=== PATIENT | male | born 1975 | race African-American/Black ===

== ENCOUNTER 2022-03-06 16:44 | Inpatient (IN) ==
[2022-03-06] MEDS ORDERED: DILTIAZEM 100 MG VIAL.ADD IV ONE (20:22)
[2022-03-06] MEDS ORDERED: DILTIAZEM 25 MG/5 ML VIAL IV ONE (20:22)
[2022-03-06] MEDS ORDERED: ENOXAPARIN 60 MG/0.6 ML SYRINGE IV ONE (20:24)
[2022-03-06] MEDS ORDERED: DILTIAZEM 25 MG/5 ML VIAL IV STA (20:24)
[2022-03-06] MEDS: DILTIAZEM INJ 100 MG in SODIUM CHLORIDE 0.9% 100 ML IV SCH (20:32)
[2022-03-06 20:37] LABS: Basophils # 0.1 10*3/uL (0.0-0.2); Basophils % 0.9 % (0.0-0.8); Eosinophils # 0.2 10*3/uL (0.0-0.87); Hematocrit 45.7 VOL% (42.0-52.0); Immature Granulocytes % 0.4 %; Immature Granulocytes Absolute 0.03 #; Lymphocytes # 2.3 10*3/uL (1.4-4.0); Lymphocytes % 28.8 % (21.2-54.2); Mean Corpuscular HGB Conc 32.8 GM/DL (32-36); Mean Corpuscular Volume 86.6 FL (87-102); Mean Platelet Volume 11.3 FL (9.6-12.0); Monocytes # 0.8 10*3/uL (0.11-0.8); Monocytes % 9.7 % (1.7-12.7); Neutrophils % 58.2 % (38.7-73.9); Platelet Count 286 T/CUMM (130-400); Red Blood Count 5.28 MC/CUMM (3.8-5.5); White Blood Count 7.8 T/CUMM (4-12)
[2022-03-06] MEDS ORDERED: ENOXAPARIN 80 MG/0.8 ML SYRINGE SUBCUT STA (20:39)
[2022-03-06] MEDS ORDERED: ENOXAPARIN 100 MG/ML SYRINGE SUBCUT ONE ×2 (21:00)
[2022-03-06 21:12] LABS: Albumin 3.2 G/DL (3.4-5.0); Bilirubin,Total 0.6 MG/DL (0.20-1.00); Calcium 8.7 MG/DL (8.5-10.1); High Sensitive Troponin I* 37.4 ng/L (0-78); Osmolality,Calculated 285.3 MOS/KG (273-304); Potassium 3.3 MMOL/L (3.5-5.1)
[2022-03-06] MEDS ORDERED: POTASSIUM CHLORIDE 20 MEQ TABLET PO STA (21:21)
[2022-03-06] MEDS ORDERED: MORPHINE 2 MG/1 ML SYRINGE IV PRN (22:21)
[2022-03-06] MEDS ORDERED: diphenhydrAMINE CAP 25 MG CAPSULE PO PRN (22:21)
[2022-03-06] MEDS ORDERED: hydrALAZINE 20 MG/1 ML VIAL IV PRN (22:21)
[2022-03-06] MEDS ORDERED: NICOTINE 21 MG/24 HR PATCH TRANSDERM PRN (22:21)
[2022-03-06] MEDS ORDERED: BISACODYL 5 MG TABLET PO PRN (22:21)
[2022-03-06] MEDS ORDERED: ACETAMINOPHEN 325 MG TABLET PO PRN (22:21)
[2022-03-06] MEDS ORDERED: ONDANSETRON 4 MG/2 ML VIAL IV PRN (22:21)
[2022-03-06] MEDS ORDERED: GLUCAGON 1 MG VIAL IM PRN (22:21)
[2022-03-06] MEDS ORDERED: MAGNESIUM SULF RIDER 1 GM/100 ML PREMIX IV ONE (22:23)
[2022-03-06] MEDS ORDERED: FUROSEMIDE 40 MG/4 ML VIAL IV STA (22:24)
[2022-03-06] MEDS ORDERED: DEXTROSE 10% 250 ML BAG IV PRN (22:26)
[2022-03-07 00:24] LABS: Barbiturates Screen,Urine Negative (Negative); Benzodiazepines Screen,Urine Negative (Negative); Cannabinoid Screen,Urine Negative (Negative); Opiate Screen,Urine Negative (Negative); Phencyclidine Screen,Urine Negative (Negative)
[2022-03-07] MEDS: DILTIAZEM INJ 100 MG in SODIUM CHLORIDE 0.9% 100 ML IV SCH ×2 (03:24→21:36)
[2022-03-07 04:51] LABS: Basophils # 0.1 10*3/uL (0.0-0.2); Basophils % 0.8 % (0.0-0.8); Eosinophils # 0.2 10*3/uL (0.0-0.87); Eosinophils % 2.8 % (0.00-10.9); Hematocrit 44.3 VOL% (42.0-52.0); Hemoglobin 14.1 GM/DL (14.0-18.0); Immature Granulocytes % 0.3 %; Immature Granulocytes Absolute 0.02 #; Lymphocytes # 2.1 10*3/uL (1.4-4.0); Mean Corpuscular HGB Conc 31.8 GM/DL (32-36); Mean Corpuscular Volume 88.6 FL (87-102); Mean Platelet Volume 11.6 FL (9.6-12.0); Monocytes # 0.8 10*3/uL (0.11-0.8); Monocytes % 10.1 % (1.7-12.7); Platelet Count 269 T/CUMM (130-400); White Blood Count 7.9 T/CUMM (4-12)
[2022-03-07 05:09] LABS: Calcium 8.6 MG/DL (8.5-10.1); Osmolality,Calculated 282.3 MOS/KG (273-304); Potassium 3.4 MMOL/L (3.5-5.1)
[2022-03-07] MEDS: POTASSIUM CHLORIDE 20 MEQ TABLET PO SCH (08:35)
[2022-03-07] MEDS: PANTOPRAZOLE 40 MG TABLET PO SCH (08:35)
[2022-03-07] MEDS: INSULIN LISPRO 100 UNIT/ML SUBCUT SCH ×4 (08:50→21:31)
[2022-03-07] MEDS: METOPROLOL TARTRATE 25 MG TABLET PO SCH ×2 (09:25→21:36)
[2022-03-07] MEDS: RIVAROXABAN 20 MG TABLET PO SCH (09:26)
[2022-03-07] MEDS ORDERED: POTASSIUM CHLORIDE 20 MEQ TABLET PO PRN (11:39)
[2022-03-07] MEDS: guaiFENesin/DM ER 600-30 MG TABLET PO PRN (16:19)
[2022-03-07] MEDS: ZALEPLON 5 MG CAPSULE PO PRN (21:36)
[2022-03-08 05:02] LABS: Basophils % 0.6 % (0.0-0.8); Eosinophils # 0.2 10*3/uL (0.0-0.87); Hematocrit 43.2 VOL% (42.0-52.0); Hemoglobin 13.9 GM/DL (14.0-18.0); Immature Granulocytes % 0.3 %; Immature Granulocytes Absolute 0.02 #; Lymphocytes # 1.7 10*3/uL (1.4-4.0); Lymphocytes % 24.6 % (21.2-54.2); Mean Corpuscular HGB Conc 32.2 GM/DL (32-36); Mean Corpuscular Volume 87.4 FL (87-102); Mean Platelet Volume 11.5 FL (9.6-12.0); Monocytes # 0.7 10*3/uL (0.11-0.8); Monocytes % 10.3 % (1.7-12.7); Neutrophils % 61.2 % (38.7-73.9); Platelet Count 249 T/CUMM (130-400); Red Blood Count 4.94 MC/CUMM (3.8-5.5); Red Cell Distribution Width 13.9 % (9.3-17.3); White Blood Count 6.7 T/CUMM (4-12)
[2022-03-08 05:23] LABS: Calcium 8.6 MG/DL (8.5-10.1); Osmolality,Calculated 282.3 MOS/KG (273-304); Potassium 3.6 MMOL/L (3.5-5.1)
[2022-03-08] MEDS: RIVAROXABAN 20 MG TABLET PO SCH (08:12)
[2022-03-08] MEDS: PANTOPRAZOLE 40 MG TABLET PO SCH (08:12)
[2022-03-08] MEDS: POTASSIUM CHLORIDE 20 MEQ TABLET PO SCH (08:12)
[2022-03-08] MEDS: guaiFENesin/DM ER 600-30 MG TABLET PO PRN ×2 (08:12→20:57)
[2022-03-08] MEDS: METOPROLOL TARTRATE 25 MG TABLET PO SCH ×2 (08:12→20:59)
[2022-03-08] MEDS: INSULIN LISPRO 100 UNIT/ML SUBCUT SCH ×4 (08:29→21:01)
[2022-03-08] MEDS ORDERED: SODIUM CHLORIDE 0.9% 1,000 ML IV SCH (09:00)
[2022-03-08] MEDS ORDERED: methylPREDNISolone 4 MG TABLET PO SCH (10:30)
[2022-03-08] MEDS: BUDESONIDE/FORMOTEROL 160-4.5 INHALER 6 GM INH SCH ×2 (12:32→21:02)
[2022-03-08] MEDS ORDERED: HEPARIN/NACL 0.9% 2 UNITS/ML 3,000 UNIT/1,500 ML BAG IV ONE (14:03)
[2022-03-08] MEDS ORDERED: fentaNYL 100 MCG/2 ML VIAL ONE (15:17)
[2022-03-08] MEDS ORDERED: MIDAZOLAM 2 MG/2 ML VIAL ONE ×2 (15:17→15:53)
[2022-03-08] MEDS ORDERED: DILTIAZEM 100 MG VIAL.ADD IV ONE (16:27)
[2022-03-08] MEDS: methylPREDNISolone 4 MG TABLET PO SCH ×3 (17:50→20:58)
[2022-03-08] MEDS: SACUBITRIL/VALSARTAN 49-51 MG TABLET PO SCH (20:57)
[2022-03-08] MEDS: ZALEPLON 5 MG CAPSULE PO PRN (20:58)
[2022-03-09] MEDS: DILTIAZEM INJ 100 MG in SODIUM CHLORIDE 0.9% 100 ML IV SCH ×2 (01:34→20:27)
[2022-03-09 06:00] LABS: Basophils % 0.2 % (0.0-0.8); Eosinophils % 0.2 % (0.00-10.9); Hematocrit 44.2 VOL% (42.0-52.0); Hemoglobin 14.3 GM/DL (14.0-18.0); Immature Granulocytes % 0.8 %; Immature Granulocytes Absolute 0.05 #; Lymphocytes # 0.8 10*3/uL (1.4-4.0); Lymphocytes % 12.2 % (21.2-54.2); Mean Corpuscular HGB Conc 32.4 GM/DL (32-36); Mean Corpuscular Volume 87.5 FL (87-102); Mean Platelet Volume 11.3 FL (9.6-12.0); Monocytes # 0.3 10*3/uL (0.11-0.8); Monocytes % 4.5 % (1.7-12.7); Neutrophils % 82.1 % (38.7-73.9); Platelet Count 284 T/CUMM (130-400); Red Blood Count 5.05 MC/CUMM (3.8-5.5); Red Cell Distribution Width 13.7 % (9.3-17.3); White Blood Count 6.5 T/CUMM (4-12)
[2022-03-09 06:17] LABS: Calcium 8.8 MG/DL (8.5-10.1); Osmolality,Calculated 284.3 MOS/KG (273-304); Potassium 4.1 MMOL/L (3.5-5.1)
[2022-03-09] MEDS: INSULIN LISPRO 100 UNIT/ML SUBCUT SCH ×4 (08:05→21:39)
[2022-03-09] MEDS: METOPROLOL TARTRATE 50 MG TABLET PO SCH ×2 (09:15→21:35)
[2022-03-09] MEDS: SACUBITRIL/VALSARTAN 49-51 MG TABLET PO SCH ×2 (09:15→21:35)
[2022-03-09] MEDS: RIVAROXABAN 20 MG TABLET PO SCH (09:15)
[2022-03-09] MEDS: PANTOPRAZOLE 40 MG TABLET PO SCH (09:16)
[2022-03-09] MEDS: ASPIRIN EC 81 MG TABLET PO SCH (09:16)
[2022-03-09] MEDS: POTASSIUM CHLORIDE 20 MEQ TABLET PO SCH (09:16)
[2022-03-09] MEDS: methylPREDNISolone 4 MG TABLET PO SCH ×4 (09:17→21:35)
[2022-03-09] MEDS: BUDESONIDE/FORMOTEROL 160-4.5 INHALER 6 GM INH SCH ×2 (09:17→21:39)
[2022-03-09] MEDS: ASCORBIC ACID 500 MG TABLET PO SCH (21:35)
[2022-03-10 05:56] LABS: Basophils % 0.2 % (0.0-0.8); Eosinophils % 0.1 % (0.00-10.9); Hematocrit 47.6 VOL% (42.0-52.0); Immature Granulocytes % 0.5 %; Immature Granulocytes Absolute 0.04 #; Lymphocytes % 11.7 % (21.2-54.2); Mean Corpuscular HGB Conc 33.6 GM/DL (32-36); Mean Corpuscular Volume 88.5 FL (87-102); Mean Platelet Volume 11.5 FL (9.6-12.0); Monocytes # 0.5 10*3/uL (0.11-0.8); Monocytes % 5.2 % (1.7-12.7); Neutrophils % 82.3 % (38.7-73.9); Platelet Count 295 T/CUMM (130-400); Red Blood Count 5.38 MC/CUMM (3.8-5.5); Red Cell Distribution Width 13.8 % (9.3-17.3); White Blood Count 8.6 T/CUMM (4-12)
[2022-03-10 06:13] LABS: Calcium 8.7 MG/DL (8.5-10.1); Osmolality,Calculated 280.5 MOS/KG (273-304); Potassium 4.2 MMOL/L (3.5-5.1)
[2022-03-10] MEDS: INSULIN LISPRO 100 UNIT/ML SUBCUT SCH ×4 (08:29→20:55)
[2022-03-10] MEDS: POTASSIUM CHLORIDE 20 MEQ TABLET PO SCH (08:36)
[2022-03-10] MEDS: methylPREDNISolone 4 MG TABLET PO SCH ×4 (08:37→20:51)
[2022-03-10] MEDS: ASCORBIC ACID 500 MG TABLET PO SCH ×2 (08:37→20:51)
[2022-03-10] MEDS: RIVAROXABAN 20 MG TABLET PO SCH (08:37)
[2022-03-10] MEDS: ASPIRIN EC 81 MG TABLET PO SCH (08:37)
[2022-03-10] MEDS: PANTOPRAZOLE 40 MG TABLET PO SCH (08:37)
[2022-03-10] MEDS: SACUBITRIL/VALSARTAN 49-51 MG TABLET PO SCH ×2 (08:55→20:51)
[2022-03-10] MEDS ORDERED: METOPROLOL TARTRATE 25 MG TABLET PO SCH (09:00)
[2022-03-10] MEDS: BUDESONIDE/FORMOTEROL 160-4.5 INHALER 6 GM INH SCH ×2 (09:13→21:01)
[2022-03-10] MEDS: METOPROLOL TARTRATE 100 MG TABLET PO SCH ×2 (10:11→20:51)
[2022-03-10] MEDS ORDERED: DIGOXIN 0.25 MG TABLET PO ONE (12:24)
[2022-03-10] MEDS: guaiFENesin/DM ER 600-30 MG TABLET PO PRN (20:58)
[2022-03-11 06:06] LABS: Basophils % 0.2 % (0.0-0.8); Eosinophils % 0.2 % (0.00-10.9); Hematocrit 48.5 VOL% (42.0-52.0); Hemoglobin 15.3 GM/DL (14.0-18.0); Immature Granulocytes % 0.3 %; Immature Granulocytes Absolute 0.03 #; Lymphocytes # 1.7 10*3/uL (1.4-4.0); Mean Corpuscular HGB Conc 31.5 GM/DL (32-36); Mean Corpuscular Volume 87.7 FL (87-102); Mean Platelet Volume 11.7 FL (9.6-12.0); Monocytes # 0.7 10*3/uL (0.11-0.8); Monocytes % 7.3 % (1.7-12.7); Platelet Count 297 T/CUMM (130-400); Red Blood Count 5.53 MC/CUMM (3.8-5.5); Red Cell Distribution Width 13.9 % (9.3-17.3); White Blood Count 9.5 T/CUMM (4-12)
[2022-03-11 06:47] LABS: Calcium 8.9 MG/DL (8.5-10.1); Osmolality,Calculated 281.5 MOS/KG (273-304); Potassium 3.9 MMOL/L (3.5-5.1)
[2022-03-11] MEDS: ASCORBIC ACID 500 MG TABLET PO SCH ×2 (08:35→21:47)
[2022-03-11] MEDS: ASPIRIN EC 81 MG TABLET PO SCH (08:35)
[2022-03-11] MEDS: SACUBITRIL/VALSARTAN 49-51 MG TABLET PO SCH ×2 (08:36→21:47)
[2022-03-11] MEDS: RIVAROXABAN 20 MG TABLET PO SCH (08:36)
[2022-03-11] MEDS: PANTOPRAZOLE 40 MG TABLET PO SCH (08:36)
[2022-03-11] MEDS: POTASSIUM CHLORIDE 20 MEQ TABLET PO SCH (08:36)
[2022-03-11] MEDS: METOPROLOL TARTRATE 100 MG TABLET PO SCH (08:36)
[2022-03-11] MEDS: methylPREDNISolone 4 MG TABLET PO SCH ×3 (08:37→21:50)
[2022-03-11] MEDS: BUDESONIDE/FORMOTEROL 160-4.5 INHALER 6 GM INH SCH ×2 (08:39→21:49)
[2022-03-11] MEDS: INSULIN LISPRO 100 UNIT/ML SUBCUT SCH ×4 (08:58→21:49)
[2022-03-11] MEDS: DILTIAZEM INJ 100 MG in SODIUM CHLORIDE 0.9% 100 ML IV SCH (10:47)
[2022-03-11] MEDS ORDERED: DAPAGLIFLOZIN 10 MG TABLET PO SCH (12:00)
[2022-03-11] MEDS ORDERED: SPIRONOLACTONE 25 MG TABLET PO SCH (12:00)
[2022-03-11] MEDS: DIGOXIN 0.25 MG TABLET PO SCH (12:01)
[2022-03-11] MEDS ORDERED: DIGOXIN 0.125 MG TABLET PO SCH (13:00)
[2022-03-11] MEDS: METOPROLOL SUCCINATE XL 100 MG TABLET PO SCH (21:47)
[2022-03-11] MEDS: guaiFENesin/DM ER 600-30 MG TABLET PO PRN (21:47)
[2022-03-12 05:01] LABS: Basophils # 0.1 10*3/uL (0.0-0.2); Basophils % 0.7 % (0.0-0.8); Eosinophils # 0.1 10*3/uL (0.0-0.87); Eosinophils % 0.8 % (0.00-10.9); Hematocrit 50.1 VOL% (42.0-52.0); Immature Granulocytes % 0.3 %; Immature Granulocytes Absolute 0.03 #; Mean Corpuscular HGB Conc 31.9 GM/DL (32-36); Mean Corpuscular Volume 87.6 FL (87-102); Mean Platelet Volume 11.7 FL (9.6-12.0); Monocytes % 11.8 % (1.7-12.7); Neutrophils % 51.4 % (38.7-73.9); Platelet Count 302 T/CUMM (130-400); Red Blood Count 5.72 MC/CUMM (3.8-5.5); Red Cell Distribution Width 14.1 % (9.3-17.3); White Blood Count 8.6 T/CUMM (4-12)
[2022-03-12 05:31] LABS: Calcium 8.4 MG/DL (8.5-10.1); Potassium 4.3 MMOL/L (3.5-5.1)
[2022-03-12] MEDS ORDERED: MAGNESIUM SULF RIDER 2 GM/50 ML PREMIX IV ONE (08:13)
[2022-03-12] MEDS: INSULIN LISPRO 100 UNIT/ML SUBCUT SCH ×3 (08:56→16:13)
[2022-03-12] MEDS ORDERED: FUROSEMIDE 40 MG TABLET PO SCH (09:00)
[2022-03-12] MEDS ORDERED: MAGNESIUM CHLORIDE 64 MG TABLET PO SCH (09:00)
[2022-03-12] MEDS: RIVAROXABAN 20 MG TABLET PO SCH (09:38)
[2022-03-12] MEDS: METOPROLOL SUCCINATE XL 100 MG TABLET PO SCH (09:38)
[2022-03-12] MEDS: PANTOPRAZOLE 40 MG TABLET PO SCH (09:38)
[2022-03-12] MEDS: ASPIRIN EC 81 MG TABLET PO SCH (09:39)
[2022-03-12] MEDS: methylPREDNISolone 4 MG TABLET PO SCH (09:39)
[2022-03-12] MEDS: ASCORBIC ACID 500 MG TABLET PO SCH (09:40)
[2022-03-12] MEDS: BUDESONIDE/FORMOTEROL 160-4.5 INHALER 6 GM INH SCH (09:41)
[2022-03-12] MEDS: guaiFENesin/DM ER 600-30 MG TABLET PO PRN (09:48)
[2022-03-12 13:12] VITALS: BP 104/75
[2022-03-12] MEDS: DIGOXIN 0.25 MG TABLET PO SCH (13:46)
== END 2022-03-12 16:43 | disposition home or self-care (01) | DRG 287 ==
LOC: N.ED 16:44 → SUATTDRO 22:21 → N.EDINP 22:21 → N.TELES 03-07 03:11
PROVIDERS: ADMIT Internal Medicine; ATTEND Internal Medicine

== ENCOUNTER 2022-04-06 17:47 | Inpatient (IN) ==
[2022-04-06] MEDS ORDERED: DILTIAZEM 25 MG/5 ML VIAL IV STA ×2 (18:08→18:57)
[2022-04-06] MEDS ORDERED: SODIUM CHLORIDE 0.9% 1,000 ML IV STA (18:08)
[2022-04-06 18:17] LABS: Basophils % 0.4 % (0.0-0.8); Eosinophils % 0.3 % (0.00-10.9); Hematocrit 51.1 VOL% (42.0-52.0); Hemoglobin 16.4 GM/DL (14.0-18.0); Immature Granulocytes % 0.4 %; Immature Granulocytes Absolute 0.03 #; Lymphocytes # 1.3 10*3/uL (1.4-4.0); Lymphocytes % 16.7 % (21.2-54.2); Mean Corpuscular HGB Conc 32.1 GM/DL (32-36); Mean Platelet Volume 11.8 FL (9.6-12.0); Monocytes % 13.1 % (1.7-12.7); NRBC # 0.02 10*3/uL; Neutrophils % 69.1 % (38.7-73.9); Platelet Count 248 T/CUMM (130-400); Red Blood Count 5.94 MC/CUMM (3.8-5.5); Red Cell Distribution Width 15.2 % (9.3-17.3); White Blood Count 7.8 T/CUMM (4-12)
[2022-04-06 18:32] LABS: INR 1.3; PT Patient Result 13.6 SECS (10.1-12.1)
[2022-04-06 18:39] LABS: Albumin 3.3 G/DL (3.4-5.0); Bilirubin,Total 1.8 MG/DL (0.20-1.00); Calcium 9.7 MG/DL (8.5-10.1); Osmolality,Calculated 285.7 MOS/KG (273-304); Potassium 3.7 MMOL/L (3.5-5.1); Total Protein 8.1 G/DL (6.4-8.2)
[2022-04-06 18:45] LABS: Arterial Base Excess iSTAT -2 MMOL/L (-2.5-2.5); Arterial Bicarbonate iSTAT 22.3 MMOL/L (20-26); Arterial O2 Saturation iSTAT 83 % (95-100); Arterial PCO2 iSTAT 38 MM HG (35-48); Arterial PO2 iSTAT 48 MM HG (80-95); Arterial Total CO2 iSTAT 23 MMO/L (23-27); Arterial pH iSTAT 7.378 (7.35-7.45)
[2022-04-06 18:57] LABS: Platelet Estimate Adequate
[2022-04-06] MEDS ORDERED: PIPERACILLIN/TAZOBACTAM 3,375 MG in SODIUM CHLORIDE 0.9% 100 ML IV STA (19:02)
[2022-04-06] MEDS ORDERED: VANCOMYCIN INJ 1,000 MG in SODIUM CHLORIDE 0.9% 250 ML IV STA (19:02)
[2022-04-06] MEDS: DILTIAZEM INJ 100 MG in SODIUM CHLORIDE 0.9% 100 ML IV SCH (19:05)
[2022-04-06] MEDS ORDERED: FUROSEMIDE 100 MG/10 ML VIAL ONE (19:20)
[2022-04-06] MEDS ORDERED: FUROSEMIDE 40 MG/4 ML VIAL IV STA ×2 (19:21→21:39)
[2022-04-06] MEDS ORDERED: HEPARIN/NACL 0.9% 2 UNITS/ML 2,000 UNIT/1,000 ML BAG IV ONE (19:38)
[2022-04-06] MEDS ORDERED: NITROGLYCERIN DRIP 50 MG/250 ML BOTTLE IV ONE (19:38)
[2022-04-06] MEDS ORDERED: VERAPAMIL 5 MG/2 ML VIAL ONE (19:38)
[2022-04-06] MEDS ORDERED: DILTIAZEM 50 MG/10 ML VIAL IV ONE (19:52)
[2022-04-06] MEDS ORDERED: ENOXAPARIN 30 MG/0.3 ML SYRINGE ONE (20:02)
[2022-04-06] MEDS ORDERED: TIROFIBAN 5,000 MCG/100 ML PREMIX IV ONE (20:02)
[2022-04-06] MEDS ORDERED: TIROFIBAN 5,000 MCG/100 ML PREMIX IV SCH (20:05)
[2022-04-06 20:27] LABS: Hyaline Casts,Urine 15 /LPF (0-3); Mucus,Urine Occasional /LPF (Occasional); Squamous Epithelial Cell,Urine Occasional /HPF (0-10)
[2022-04-06 20:28] LABS: Bilirubin,Urine Small mg/dL (Negative); Blood, Urine Negative (Negative); Glucose,Urine (UA) Negative (Negative); Ketones,Urine Negative (Negative); Nitrite,Urine Negative (Negative); Protein,Urine 100 mg/dL (Negative); Urine Appearance Clear (Clear); Urine Color Yellow (Yellow); Urine Specific Gravity >= 1.030 (1.001-1.035); Urine Urobilinogen >= 8.0 eU/dL (<2.0)
[2022-04-06] MEDS ORDERED: TICAGRELOR 90 MG TABLET ONE (20:33)
[2022-04-06 20:34] LABS: Barbiturates Screen,Urine Negative (Negative); Benzodiazepines Screen,Urine Negative (Negative); Cannabinoid Screen,Urine Negative (Negative); Opiate Screen,Urine Negative (Negative); Phencyclidine Screen,Urine Negative (Negative)
[2022-04-06] MEDS ORDERED: ROCURONIUM 100 MG/10 ML VIAL IV ONE (21:37)
[2022-04-06] MEDS ORDERED: ETOMIDATE 20 MG/10 ML VIAL IV ONE (21:37)
[2022-04-06] MEDS ORDERED: ALBUTEROL 2.5 MG/3 ML NEB RESP TX PRN (21:39)
[2022-04-06] MEDS ORDERED: ONDANSETRON 4 MG/2 ML VIAL IV PRN (21:40)
[2022-04-06] MEDS ORDERED: NICOTINE 21 MG/24 HR PATCH TRANSDERM PRN (21:40)
[2022-04-06] MEDS ORDERED: ACETAMINOPHEN 325 MG TABLET PO PRN (21:40)
[2022-04-06] MEDS ORDERED: hydrALAZINE 20 MG/1 ML VIAL IV PRN (21:40)
[2022-04-06] MEDS ORDERED: MORPHINE 2 MG/1 ML SYRINGE IV PRN (21:40)
[2022-04-06 21:44] LABS: ABG Base Excess -4.3 MMOL/L (-2.5-2.5); ABG HCO3 20.8 MMOL/L (20-26); ABG Oxygen Saturation 95.1 % (95-100); ABG PCO2 43.2 MM HG (35-48); ABG PH 7.314 (7.35-7.45); ABG PO2 95.6 MM HG (80-95)
[2022-04-06 22:00] LABS: INR 1.3; PT Patient Result 14.1 SECS (10.1-12.1); Partial Thromboplastin Time 30.4 SECS (23.7-32.9)
[2022-04-06] MEDS ORDERED: cloNIDine 0.2 MG/24 HR PATCH TRANSDERM SCH (22:00)
[2022-04-06] MEDS: HEPARIN DRIP 25,000 UNITS/500 ML PREMIX IV SCH (22:28)
[2022-04-06] MEDS: FAMOTIDINE 20 MG/2 ML VIAL IV SCH (22:45)
[2022-04-06] MEDS: MIDAZOLAM 100 MG in SODIUM CHLORIDE 0.9% 80 ML IV PRN (23:30)
[2022-04-06] MEDS: fentaNYL INJ 1,250 MCG in SODIUM CHLORIDE 0.9% 225 ML IV PRN (23:34)
[2022-04-06] MEDS ORDERED: PHENYLEPHRINE DRIP 40 MG/250 ML PREMIX IV ONE (23:34)
[2022-04-06] MEDS: PHENYLEPHRINE DRIP 40 MG/250 ML PREMIX IV PRN (23:56)
[2022-04-07] MEDS: PHENYLEPHRINE DRIP 40 MG/250 ML PREMIX IV PRN ×3 (02:57→06:03)
[2022-04-07] MEDS: FUROSEMIDE 40 MG/4 ML VIAL IV SCH ×3 (03:03→15:30)
[2022-04-07 04:07] LABS: Basophils % 0.2 % (0.0-0.8); Eosinophils % 0.1 % (0.00-10.9); Hemoglobin 15.2 GM/DL (14.0-18.0); Immature Granulocytes % 0.5 %; Immature Granulocytes Absolute 0.05 #; Lymphocytes # 1.8 10*3/uL (1.4-4.0); Lymphocytes % 17.4 % (21.2-54.2); Mean Corpuscular HGB Conc 31.7 GM/DL (32-36); Mean Corpuscular Volume 88.2 FL (87-102); Mean Platelet Volume 11.4 FL (9.6-12.0); Monocytes % 10.2 % (1.7-12.7); NRBC # 0.03 10*3/uL; Neutrophils % 71.6 % (38.7-73.9); Platelet Count 252 T/CUMM (130-400); Red Blood Count 5.44 MC/CUMM (3.8-5.5); Red Cell Distribution Width 15.1 % (9.3-17.3); White Blood Count 10.1 T/CUMM (4-12)
[2022-04-07 04:14] LABS: ABG Base Excess -5.7 MMOL/L (-2.5-2.5); ABG HCO3 19.9 MMOL/L (20-26); ABG Oxygen Saturation 99.5 % (95-100); ABG PCO2 41.1 MM HG (35-48); ABG PH 7.307 (7.35-7.45); ABG TCO2 17.5 MMOL/L (23-27)
[2022-04-07 05:14] LABS: Albumin 2.8 G/DL (3.4-5.0); Bilirubin,Total 1.4 MG/DL (0.20-1.00); Calcium 8.7 MG/DL (8.5-10.1); Osmolality,Calculated 283.8 MOS/KG (273-304); Potassium 4.5 MMOL/L (3.5-5.1); Total Protein 7.6 G/DL (6.4-8.2)
[2022-04-07] MEDS: fentaNYL INJ 1,250 MCG in SODIUM CHLORIDE 0.9% 225 ML IV PRN ×4 (06:19→20:55)
[2022-04-07] MEDS: PHENYLEPHRINE INJ 160 MG in SODIUM CHLORIDE 0.9% 234 ML IV PRN ×5 (07:40→23:40)
[2022-04-07] MEDS: HEPARIN DRIP 25,000 UNITS/500 ML PREMIX IV SCH ×3 (08:20→22:30)
[2022-04-07] MEDS: FAMOTIDINE 20 MG/2 ML VIAL IV SCH ×2 (09:12→22:50)
[2022-04-07] MEDS: DILTIAZEM INJ 100 MG in SODIUM CHLORIDE 0.9% 100 ML IV SCH (15:30)
[2022-04-07] MEDS: MIDAZOLAM 100 MG in SODIUM CHLORIDE 0.9% 80 ML IV PRN (16:30)
[2022-04-07] MEDS ORDERED: DIGOXIN 0.5 MG/2 ML AMP IV STA (18:30)
[2022-04-07] MEDS ORDERED: NOREPINEPHRINE 16 MG in SODIUM CHLORIDE 0.9% 234 ML IV PRN (18:34)
[2022-04-07] MEDS ORDERED: PHENYLEPHRINE INJ 160 MG in SODIUM CHLORIDE 0.9% 234 ML IV PRN (18:51)
[2022-04-07] MEDS ORDERED: DIGOXIN 0.5 MG/2 ML AMP IV ONE (19:14)
[2022-04-07] MEDS ORDERED: NOREPINEPHRINE 4 MG/4 ML VIAL IV ONE (20:44)
[2022-04-08] MEDS: fentaNYL INJ 1,250 MCG in SODIUM CHLORIDE 0.9% 225 ML IV PRN ×5 (01:25→20:01)
[2022-04-08 01:36] LABS: ABG Base Excess -12.8 MMOL/L (-2.5-2.5); ABG HCO3 14.6 MMOL/L (20-26); ABG Oxygen Saturation 87.5 % (95-100); ABG PCO2 44.3 MM HG (35-48); ABG PO2 75.3 MM HG (80-95); ABG TCO2 14.4 MMOL/L (23-27)
[2022-04-08] MEDS ORDERED: SODIUM BICARBONATE 50 MEQ/50 ML VIAL IV ONE ×4 (01:46→05:47)
[2022-04-08] MEDS: SODIUM BICARB INJ 150 MEQ in STERILE WATER INJ 850 ML IV SCH ×2 (02:08→13:30)
[2022-04-08 02:35] LABS: Basophils % 0.2 % (0.0-0.8); Eosinophils % 0.1 % (0.00-10.9); Hematocrit 49.5 VOL% (42.0-52.0); Hemoglobin 15.2 GM/DL (14.0-18.0); Immature Granulocytes % 1.1 %; Lymphocytes % 5.7 % (21.2-54.2); Mean Corpuscular HGB Conc 30.7 GM/DL (32-36); Mean Platelet Volume 11.5 FL (9.6-12.0); Monocytes # 1.8 10*3/uL (0.11-0.8); Monocytes % 10.3 % (1.7-12.7); NRBC # 0.38 10*3/uL; Neutrophils % 82.6 % (38.7-73.9); Platelet Count 263 T/CUMM (130-400); Red Blood Count 5.44 MC/CUMM (3.8-5.5); Red Cell Distribution Width 15.6 % (9.3-17.3); White Blood Count 17.8 T/CUMM (4-12)
[2022-04-08 02:39] LABS: Albumin 2.4 G/DL (3.4-5.0); Bilirubin,Total 2.3 MG/DL (0.20-1.00); Calcium 7.3 MG/DL (8.5-10.1); Osmolality,Calculated 289.5 MOS/KG (273-304); Potassium 5.8 MMOL/L (3.5-5.1); Total Protein 6.8 G/DL (6.4-8.2)
[2022-04-08] MEDS: PHENYLEPHRINE INJ 160 MG in SODIUM CHLORIDE 0.9% 234 ML IV PRN ×4 (02:40→10:55)
[2022-04-08] MEDS: NOREPINEPHRINE 8 MG in SODIUM CHLORIDE 0.9% 242 ML IV PRN ×2 (02:50→09:44)
[2022-04-08] MEDS ORDERED: FUROSEMIDE 40 MG/4 ML VIAL IV ONE (03:04)
[2022-04-08] MEDS ORDERED: PANTOPRAZOLE 40 MG VIAL IV ONE (04:27)
[2022-04-08] MEDS: HEPARIN DRIP 25,000 UNITS/500 ML PREMIX IV SCH ×2 (04:49→13:38)
[2022-04-08] MEDS: MIDAZOLAM 100 MG in SODIUM CHLORIDE 0.9% 80 ML IV PRN ×2 (05:35→19:39)
[2022-04-08 05:44] LABS: ABG Base Excess -11.8 MMOL/L (-2.5-2.5); ABG HCO3 15.4 MMOL/L (20-26); ABG Oxygen Saturation 94.6 % (95-100); ABG PCO2 54.6 MM HG (35-48); ABG TCO2 16.6 MMOL/L (23-27)
[2022-04-08 06:51] LABS: Hematocrit 51.8 VOL% (42.0-52.0)
[2022-04-08 06:53] LABS: Hemoglobin 15.5 GM/DL (14.0-18.0)
[2022-04-08] MEDS: FUROSEMIDE 40 MG/4 ML VIAL IV SCH (08:06)
[2022-04-08 09:55] LABS: ABG Base Excess -10.5 MMOL/L (-2.5-2.5); ABG HCO3 16.4 MMOL/L (20-26); ABG Oxygen Saturation 98.4 % (95-100); ABG PCO2 42.9 MM HG (35-48); ABG PH 7.217 (7.35-7.45); ABG TCO2 15.2 MMOL/L (23-27)
[2022-04-08] MEDS ORDERED: DOBUTamine 500 MG/250 ML PREMIX IV PRN (09:56)
[2022-04-08] MEDS ORDERED: INSULIN REGULAR 10 UNIT, CALCIUM GLUCONATE 1,000 MG in DEXTROSE 10% 250 ML IV ONE (10:00)
[2022-04-08] MEDS: HYDROCORTISONE 100 MG VIAL IV SCH ×2 (10:21→23:06)
[2022-04-08] MEDS ORDERED: NOREPINEPHRINE 16 MG in SODIUM CHLORIDE 0.9% 234 ML IV PRN (10:30)
[2022-04-08] MEDS ORDERED: SODIUM POLYSTYRENE SULFATE 15 GM/60 ML BOTTLE PO ONE (12:58)
[2022-04-08] MEDS: DOPamine 800 MG/250 ML PREMIX IV PRN ×2 (13:25→19:57)
[2022-04-09] MEDS: fentaNYL INJ 1,250 MCG in SODIUM CHLORIDE 0.9% 225 ML IV PRN ×2 (00:22→06:26)
[2022-04-09] MEDS: DOPamine 800 MG/250 ML PREMIX IV PRN ×2 (03:51→13:08)
[2022-04-09 05:26] LABS: ABG HCO3 22.8 MMOL/L (20-26); ABG Oxygen Saturation 99.4 % (95-100); ABG PCO2 39.5 MM HG (35-48); ABG PH 7.374 (7.35-7.45); ABG TCO2 19.4 MMOL/L (23-27)
[2022-04-09 05:34] LABS: Basophils % 0.2 % (0.0-0.8); Hemoglobin 15.6 GM/DL (14.0-18.0); Immature Granulocytes % 1.2 %; Immature Granulocytes Absolute 0.22 #; Lymphocytes % 5.1 % (21.2-54.2); Mean Corpuscular HGB Conc 32.5 GM/DL (32-36); Mean Corpuscular Volume 86.3 FL (87-102); Mean Platelet Volume 11.2 FL (9.6-12.0); Monocytes # 1.5 10*3/uL (0.11-0.8); Monocytes % 8.2 % (1.7-12.7); NRBC # 1.25 10*3/uL; Neutrophils % 85.3 % (38.7-73.9); Platelet Count 189 T/CUMM (130-400); Red Blood Count 5.56 MC/CUMM (3.8-5.5); Red Cell Distribution Width 15.8 % (9.3-17.3); White Blood Count 18.5 T/CUMM (4-12)
[2022-04-09 06:01] LABS: Calcium 6.5 MG/DL (8.5-10.1); Osmolality,Calculated 296.8 MOS/KG (273-304); Potassium 4.5 MMOL/L (3.5-5.1)
[2022-04-09 06:19] LABS: Albumin 2.4 G/DL (3.4-5.0); Bilirubin,Total 4.1 MG/DL (0.20-1.00); Calcium 6.2 MG/DL (8.5-10.1); Osmolality,Calculated 297.7 MOS/KG (273-304); Potassium 4.5 MMOL/L (3.5-5.1); Total Protein 6.7 G/DL (6.4-8.2)
[2022-04-09 08:19] VITALS: BP 112/65
[2022-04-09] MEDS: PANTOPRAZOLE 40 MG VIAL IV SCH ×2 (09:05→21:35)
[2022-04-09] MEDS: HYDROCORTISONE 100 MG VIAL IV SCH ×2 (10:26→21:35)
[2022-04-09] MEDS: SODIUM BICARB INJ 150 MEQ in STERILE WATER INJ 850 ML IV SCH (10:36)
[2022-04-09] MEDS: SODIUM BICARB INJ 150 MEQ in STERILE WATER INJ 1,000 ML IV SCH (11:48)
[2022-04-09] MEDS: HEPARIN DRIP 25,000 UNITS/500 ML PREMIX IV SCH ×3 (13:08→21:43)
[2022-04-09] MEDS: DOBUTamine 500 MG/250 ML PREMIX IV SCH ×2 (14:05→22:08)
[2022-04-09] MEDS ORDERED: METHYL SALICYLATE 60 ML BOTTLE TOP PRN (19:41)
[2022-04-09] MEDS: MENTHOL/ZINC OXIDE OINT 71 GM JAR TOP SCH (21:34)
[2022-04-10] MEDS: HEPARIN DRIP 25,000 UNITS/500 ML PREMIX IV SCH ×2 (03:14→21:32)
[2022-04-10 03:54] LABS: Basophils % 0.1 % (0.0-0.8); Hematocrit 44.6 VOL% (42.0-52.0); Hemoglobin 14.7 GM/DL (14.0-18.0); Immature Granulocytes % 0.7 %; Immature Granulocytes Absolute 0.11 #; Lymphocytes # 0.7 10*3/uL (1.4-4.0); Lymphocytes % 4.6 % (21.2-54.2); Mean Platelet Volume 11.4 FL (9.6-12.0); NRBC # 0.66 10*3/uL; Neutrophils % 88.6 % (38.7-73.9); Platelet Count 154 T/CUMM (130-400); Red Blood Count 5.31 MC/CUMM (3.8-5.5); Red Cell Distribution Width 15.7 % (9.3-17.3); White Blood Count 15.8 T/CUMM (4-12)
[2022-04-10 04:06] LABS: Osmolality,Calculated 308.5 MOS/KG (273-304); Potassium 3.5 MMOL/L (3.5-5.1)
[2022-04-10 04:08] LABS: Calcium 5.8 MG/DL (8.5-10.1)
[2022-04-10 04:15] LABS: Lymphocytes 3 % (20-55); Nucleated Red Blood Cells 7 /100 WBC (0-5); Platelet Estimate Adequate; Total Cells Counted 100
[2022-04-10 05:03] LABS: Albumin 2.1 G/DL (3.4-5.0); Bilirubin,Total 6.3 MG/DL (0.20-1.00); Osmolality,Calculated 303.8 MOS/KG (273-304); Potassium 3.5 MMOL/L (3.5-5.1); Total Protein 5.9 G/DL (6.4-8.2)
[2022-04-10] MEDS ORDERED: CALCIUM GLUCONATE RIDER 1,000 MG/50 ML PREMIX IV ONE ×2 (05:12→05:15)
[2022-04-10 05:47] LABS: Arterial Base Excess iSTAT 0 MMOL/L (-2.5-2.5); Arterial Bicarbonate iSTAT 23.6 MMOL/L (20-26); Arterial O2 Saturation iSTAT 89 % (95-100); Arterial PCO2 iSTAT 34 MM HG (35-48); Arterial PO2 iSTAT 53 MM HG (80-95); Arterial Total CO2 iSTAT 25 MMO/L (23-27); Arterial pH iSTAT 7.449 (7.35-7.45)
[2022-04-10 05:57] LABS: Arterial Base Excess iSTAT 0 MMOL/L (-2.5-2.5); Arterial Bicarbonate iSTAT 23.8 MMOL/L (20-26); Arterial O2 Saturation iSTAT 89 % (95-100); Arterial PCO2 iSTAT 35 MM HG (35-48); Arterial PO2 iSTAT 55 MM HG (80-95); Arterial Total CO2 iSTAT 25 MMO/L (23-27)
[2022-04-10] MEDS: INSULIN LISPRO 100 UNIT/ML SUBCUT SCH ×4 (06:12→23:50)
[2022-04-10 06:13] LABS: Arterial Base Excess iSTAT 1 MMOL/L (-2.5-2.5); Arterial O2 Saturation iSTAT 95 % (95-100); Arterial PCO2 iSTAT 34 MM HG (35-48); Arterial PO2 iSTAT 71 MM HG (80-95); Arterial Total CO2 iSTAT 25 MMO/L (23-27); Arterial pH iSTAT 7.459 (7.35-7.45)
[2022-04-10] MEDS: MENTHOL/ZINC OXIDE OINT 71 GM JAR TOP SCH ×2 (08:25→21:12)
[2022-04-10] MEDS: PANTOPRAZOLE 40 MG VIAL IV SCH ×2 (08:25→21:17)
[2022-04-10] MEDS: DOBUTamine 500 MG/250 ML PREMIX IV SCH ×3 (08:26→23:27)
[2022-04-10] MEDS: HYDROCORTISONE 100 MG VIAL IV SCH (09:31)
[2022-04-10] MEDS: SODIUM BICARB INJ 150 MEQ in STERILE WATER INJ 1,000 ML IV SCH (09:43)
[2022-04-10] MEDS ORDERED: FUROSEMIDE INJ 160 MG in SODIUM CHLORIDE 0.9% 50 ML IV ONE (11:00)
[2022-04-10] MEDS ORDERED: MEROPENEM 500 MG in SODIUM CHLORIDE 0.9% 100 ML IV SCH (11:00)
[2022-04-10] MEDS ORDERED: DOPamine 800 MG/250 ML PREMIX IV PRN (18:58)
[2022-04-10] MEDS: DEXAMETHASONE 4 MG/1 ML VIAL IV SCH (21:17)
[2022-04-10] MEDS ORDERED: SODIUM CHLORIDE 0.9% IV ONE ×2 (22:00→23:30)
[2022-04-10] MEDS ORDERED: MANNITOL IV ONE ×2 (22:00→23:30)
[2022-04-10 22:24] LABS: Arterial Base Excess iSTAT 1 MMOL/L (-2.5-2.5); Arterial Bicarbonate iSTAT 22.4 MMOL/L (20-26); Arterial O2 Saturation iSTAT 94 % (95-100); Arterial PCO2 iSTAT 27 MM HG (35-48); Arterial PO2 iSTAT 61 MM HG (80-95); Arterial Total CO2 iSTAT 23 MMO/L (23-27); Arterial pH iSTAT 7.527 (7.35-7.45)
[2022-04-10] MEDS ORDERED: ATORVASTATIN 80 MG TABLET PO SCH (22:30)
[2022-04-10] MEDS ORDERED: ASPIRIN 325 MG TABLET PO ONE (22:30)
[2022-04-11] MEDS: DOBUTamine 500 MG/250 ML PREMIX IV SCH (00:06)
[2022-04-11 03:43] LABS: Arterial Base Excess iSTAT 3 MMOL/L (-2.5-2.5); Arterial Bicarbonate iSTAT 23.5 MMOL/L (20-26); Arterial O2 Saturation iSTAT 93 % (95-100); Arterial PCO2 iSTAT 25 MM HG (35-48); Arterial PO2 iSTAT 54 MM HG (80-95); Arterial Total CO2 iSTAT 24 MMO/L (23-27); Arterial pH iSTAT 7.579 (7.35-7.45)
[2022-04-11] MEDS: DEXAMETHASONE 4 MG/1 ML VIAL IV SCH (05:00)
[2022-04-11] MEDS ORDERED: ASPIRIN 325 MG TABLET PO SCH (09:00)
== END 2022-04-11 05:35 | disposition hospice, home (50) | DRG 250 ==
LOC: N.ED 17:47 → N.ICU 19:38
PROVIDERS: ADMIT Internal Medicine Cardiovascular Disease; ATTEND Internal Medicine Cardiovascular Disease
PROC: CLCCHCL (ICD-10-PCS; 2022-04-06 20:15)